=== PATIENT | female | born 2005 | race Caucasian/White ===

== ENCOUNTER 2023-11-22 06:39 | Emergency (ER) | payer OTHER ==
[~2023-11-22] VITALS: Ht 160 cm; Wt 63.5 kg
[2023-11-22 06:59] VITALS: BP_SYST 131; PULSE 65; RESP 18; TEMP 98.1; O2SAT 100
[2023-11-22] MEDS: ONDANSETRON HCL 4 MG/2 ML VIAL IVP ONE (07:39)
[2023-11-22] MEDS: NACL 0.9% 1,000 ML IV ONE (07:40)
[2023-11-22 07:44] LABS: BASOPHILS % (AUTO) 0.5 % (0.0-2.0); EOSINOPHILS % (AUTO) 0.4 % (0.0-4.0); HEMATOCRIT 38.9 % (36-48); HEMOGLOBIN 13.1 g/dL (12.0-16.0); LYMPHOCYTES # (AUTO) 1.2 K/uL (1.0-5.5); LYMPHOCYTES % (AUTO) 11.6 % (20.5-51.5); MEAN CORPUSCULAR HEMOGLOBIN 30 pg (27-31); MEAN CORPUSCULAR HGB CONC 34 % (32-36); MEAN CORPUSCULAR VOLUME 88 fL (79.0-98.0); MONOCYTES # (AUTO) 0.3 K/uL (0.0-1.0); MONOCYTES % (AUTO) 2.5 % (1.7-9.3); NEUTROPHILS # (AUTO) 8.6 K/uL (1.8-7.7); PLATELET COUNT (AUTO) 305 K/uL (130-430); RED BLOOD CELL COUNT(AUTO) 4.42 MIL/uL (4.2-6.2); RED CELL DISTRIBUTION WIDTH 13.6 % (9.0-15.0); WHITE BLOOD COUNT (AUTO) 10.2 K/uL (4.5-11.0)
[2023-11-22 08:28] LABS: ALBUMIN 3.5 g/dL (3.4-4.8); BILIRUBIN,DIRECT 0.1 mg/dL (0.0-0.3); CREATININE 0.74 mg/dL (0.55-1.30); POTASSIUM 4.4 mmol/L (3.5-5.1); TOTAL BILIRUBIN 0.2 mg/dL (0.0-1.0); TOTAL PROTEIN, SERUM 6.6 g/dL (6.4-8.3)
[2023-11-22] MEDS ORDERED: ONDA-8 TL (08:46)
[2023-11-22 09:22] VITALS: BP_SYST 115; PULSE 65; RESP 18; TEMP 98.1; O2SAT 100
== END 2023-11-22 09:20 | disposition home or self-care (01) ==
LOC: SED 06:39
DX: R11.2 Nausea with vomiting, unspecified (principal); R10.9 Unspecified abdominal pain; Z79.899 Other long term (current) drug therapy
CPT/HCPCS: 99283; 96374; 96361; 80076; 80048; 84702; 83690; 83735; 85025; 36415; J2405; J7030